=== PATIENT | male | born 1965 | race Caucasian/White ===

== ENCOUNTER 2017-11-26 00:49 | Emergency (ER) | payer OTHER ==
--- NOTE | 2017-11-26 01:42 | ED Physician Documentation ---
PD HPI URI - Stated complaint Stated Complaint: THROAT PX/COUGH - Chief complaint Chief Complaint: General - History obtained from History obtained from: Patient - History of Present Illness Timing - onset: How many days ago (5) Timing details: Gradual onset Associated symptoms: Fever (subjective (has not taken temperature at home)), Chills, Sweats, Nasal congestion, Sinus pain, Sore throat, Dry cough Similar symptoms before: Has not had sx before Recently seen: Clinic (evaluated at [facility] 2 days ago, viral illness suspected ( per patient)) Review of Systems Constitutional: reports: Fever (subjective), Chills, Sweats Ears: denies: Ear pain Nose: reports: Congestion, Sinus pressure / pain Throat: reports: Sore throat Respiratory: reports: Cough GI: reports: Reviewed and negative PD PAST MEDICAL HISTORY - Past Medical History Past Medical History: Yes Cardiovascular: Hypertension, High cholesterol Musculoskeletal: Gout - Past Surgical History Past Surgical History: No - Present Medications Home Medications: Ambulatory Orders Medication Instructions Recorded Confirmed Aspirin [Meka Chewable] 81 mg PO DAILY 06/29/15 02/22/16 Lisinopril 20 mg PO DAILY 06/29/15 02/22/16 Allopurinol 100 mg PO DAILY 02/22/16 02/22/16 Indomethacin [Indocin] 25 mg PO TIDWM PRN #30 capsule 02/22/16 Simvastatin 20 mg PO DAILY 02/22/16 02/22/16 Amox/Clav 875/125 [Augmentin] 1 each PO Q12H #14 tablet 11/26/17 predniSONE [Prednisone] 40 mg PO DAILY #6 tablet 11/26/17 - Allergies Allergies/Adverse Reactions: Allergies Allergy/AdvReac Type Severity Reaction Status Date / Time No Known Drug Allergies Allergy Verified 11/26/17 01:01 - Social History Does the pt smoke?: No Smoking Status: Never smoker Does the pt drink ETOH?: Yes Does the pt have substance abuse?: No - Immunizations Immunizations are current?: No Immunizations: TDAP >10years/unknown - POLST Patient has POLST: No PD ED PE NORMAL - Vitals Vital signs reviewed: Yes - General General: Alert and oriented X 3, No acute distress, Well developed/nourished, Other (mild diaphoresis) - HEENT HEENT: Ears normal, Moist mucous membranes, Pharynx benign - Neck Neck: Supple, no meningeal sign - Respiratory Respiratory: No respiratory distress, Clear bilaterally - Abdomen Abdomen: Soft, Non tender Results - Vitals Vitals: Oxygen O2 Source Room air - Labs Labs: Microbiology 11/26/17 00:55 Group A Strep Throat Culture - Final Throat Beta Hemolytic Strep Group G Laboratory Tests 11/26/17 00:55 Group A Strep Rapid Negative PD MEDICAL DECISION MAKING - ED course Complexity details: reviewed results, re-evaluated patient, considered differential, d/w patient - Sepsis Event Vital Signs: Oxygen O2 Source Room air Departure - Departure Disposition: 01 Home, Self Care Clinical Impression: Sinusitis, Bronchitis Condition: Good Instructions: ED Upper Resp Infec Abx Tx, ED Sinusitis Abx Tx Follow-Up: ZULEYKA JEWELL [Primary Care Provider] - (3-4 days if not improving) Prescriptions: Amox/Clav 875/125 [Augmentin] 1 each PO Q12H #14 tablet predniSONE [Prednisone] 40 mg PO DAILY #6 tablet Discharge Date/Time: 11/26/17 02:15
[2017-11-26] MEDS ORDERED: DEXAMETHASONE 10 MG/ML VIAL PO STA (02:04)
[2017-11-26] MEDS ORDERED: AMOX/CLAV 875 MG/125 MG TABLET PO STA (02:04)
[2017-11-26 02:15] VITALS: BP 135/84
== END 2017-11-26 02:15 | disposition home or self-care (01) ==
LOC: ED 00:49
DX: J32.9 Chronic sinusitis, unspecified (principal); J40 Bronchitis, not specified as acute or chronic; I10 Essential (primary) hypertension; Z79.82 Long term (current) use of aspirin
CPT/HCPCS: 87070; 87430; 99283; A9270